=== PATIENT | female | born 1975 | race Caucasian/White ===

== ENCOUNTER 2018-05-03 09:56 | Emergency (ER) | payer OTHER ==
[2018-05-03 10:11] VITALS: BP 118/71
--- NOTE | 2018-05-03 12:07 | Emergency Department Report ---
- General Chief complaint: Arrhythmia/Palpitations Stated complaint: LOW BP Time Seen by Provider: 05/03/18 11:59 Source: patient, family Mode of arrival: Ambulatory Limitations: Language Barrier - History of Present Illness Initial comments: Mrs. iHtchcock is healthy 42-year-old female who was referred to the ER from [facility]. She was evaluated by Fela Hamilton. She was in the office for 2 week follow-up last resort. She was unable to get a CT done for frequent headaches. Blood pressure was 86/55. She also had bradycardia 55 beats a minute. She refers to the ER for abnormal vital signs. According to H&P provided labs were stable. She does not have any current headaches. She patient's mother she has had frequent headaches for a long time. She is currently symptom-free. She does not take medications for blood pressure. I have reviewed medications which include Fioricet and prednisone. - Related Data Home Medications Medication Instructions Recorded Confirmed Last Taken No Known Home Medications [No 04/04/14 04/04/14 Unknown Reported Home Medications] Allergies Allergy/AdvReac Type Severity Reaction Status Date / Time No Known Allergies Allergy Verified 05/03/18 10:11 ED Review of Systems ROS: Stated complaint: LOW BP Other details as noted in HPI Comment: All other systems reviewed and negative Constitutional: denies: fever, malaise Respiratory: denies: cough Cardiovascular: denies: chest pain, palpitations ED Past Medical Hx - Past Medical History Previous Medical History?: Yes Hx Hypertension: No Hx Diabetes: No (pre-diabetes) Hx Liver Disease: No Hx Renal Disease: No Hx Seizures: No Hx Asthma: No Hx COPD: No Additional medical history: ovarian cyst, DJD, - Surgical History Past Surgical History?: Yes Hx Cholecystectomy: Yes Additional Surgical History: umbilical hernia, spleen removed? - Social History Smoking Status: Never Smoker Substance Use Type: None - Medications Home Medications: Home Medications Medication Instructions Recorded Confirmed Last Taken Type No Known Home Medications [No 04/04/14 04/04/14 Unknown History Reported Home Medications] ED Physical Exam - General Limitations: Language Barrier General appearance: alert, in no apparent distress - Head Head exam: Present: atraumatic, normocephalic - Eye Eye exam: Present: normal appearance. Absent: PERRL, EOMI - ENT ENT exam: Present: mucous membranes moist - Neck Neck exam: Present: normal inspection. Absent: tenderness, meningismus - Respiratory Respiratory exam: Present: normal lung sounds bilaterally. Absent: respiratory distress, wheezes, rales, rhonchi - Cardiovascular Cardiovascular Exam: Present: normal rhythm, tachycardia, normal heart sounds. Absent: systolic murmur, diastolic murmur, rubs, gallop - GI/Abdominal GI/Abdominal exam: Present: soft, normal bowel sounds. Absent: distended, tenderness, rebound - Extremities Exam Extremities exam: Present: normal inspection - Back Exam Back exam: Present: normal inspection - Neurological Exam Neurological exam: Present: alert, oriented X3 - Psychiatric Psychiatric exam: Present: normal affect, normal mood - Skin Skin exam: Present: warm, dry, intact, normal color. Absent: rash ED Course Vital Signs 05/03/18 05/03/18 10:02 12:44 Temperature 98.4 F Pulse Rate 53 L 89 Respiratory 17 Rate Blood Pressure 118/71 O2 Sat by Pulse 100 97 Oximetry ED Medical Decision Making - Lab Data Result diagrams: 05/03/18 12:10 05/03/18 12:06 - EKG Data -: EKG Interpreted by Ct EKG shows normal: sinus rhythm, axis, intervals, QRS complexes, ST-T waves Rate: bradycardia - EKG Data 05/03/18 12:06 EKG obtained at 1146 Sinus bradycardia rate 50 beats a minute normal axis normal intervals no ST-T signs of ischemia no signs of pericarditis - Medical Decision Making Mrs. Hitchcock presents with asymptomatic bradycardia here in the ED. Previously reported hypotension. Blood pressure was normal here in the ED. She is currently symptom-free. CBC chemistry within normal limits. EKG normal with exception of sinus bradycardia. Patient was given reassurance. Discharged home in stable condition. Critical care attestation.: If time is entered above; I have spent that time in minutes in the direct care of this critically ill patient, excluding procedure time. ED Disposition Clinical Impression: Bradycardia Disposition: DC-01 TO HOME OR SELFCARE Is pt being admited?: No Does the pt Need Aspirin: No Condition: Stable Instructions: Bradycardia (ED) Referrals: PRIMARY CARE, [Primary Care Provider] - 3-5 Days Forms: Work/School Release Form(ED) Time of Disposition: 12:55
[2018-05-03 12:17] LABS: Basophils % (Auto) 0.6 % (0.0-1.8); Eosinophils # (Auto) 0.3 K/mm3 (0.0-0.4); Eosinophils % (Auto) 5.1 % (0.0-4.3); Hematocrit 35.4 % (30.3-42.9); Lymphocytes # (Auto) 2.7 K/mm3 (1.2-5.4); Lymphocytes % (Auto) 42.9 % (13.4-35.0); Mean Corpuscular HGB Conc 34 % (30-34); Mean Corpuscular Hemoglobin 30 pg (28-32); Mean Corpuscular Volume 87 fl (79-97); Monocytes # (Auto) 0.4 K/mm3 (0.0-0.8); Monocytes % (Auto) 6.7 % (0.0-7.3); Platelet Count 271 K/mm3 (140-440); Red Blood Count 4.06 M/mm3 (3.65-5.03); Red Cell Distribution Width 13.8 % (13.2-15.2)
[2018-05-03 12:33] LABS: Alanine Aminotransferase 41 units/L (7-56); Albumin 4.5 g/dL (3.9-5); BUN/Creatinine Ratio 20; Blood Urea Nitrogen 8 mg/dL (7-17); Calcium 9.2 mg/dL (8.4-10.2); Hemolysis Index 5
== END 2018-05-03 13:03 | disposition home or self-care (01) ==
LOC: ED 09:56
DX: R00.1 Bradycardia, unspecified (principal); Z90.49 Acquired absence of other specified parts of digestive tract
CPT/HCPCS: 36415; 80053; 85025; 93005; 93010; 99283

== ENCOUNTER 2020-06-21 07:48 | Emergency (ER) | payer SELFPAY ==
[2020-06-21] MEDS ORDERED: CYCLOBENZAPRINE 10 MG TAB PO ONE (10:11)
[2020-06-21] MEDS ORDERED: IBUPROFEN 600 MG TAB PO ONE (10:11)
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
[2020-06-21 12:15] VITALS: BP 132/78
== END 2020-06-21 12:14 | disposition home or self-care (01) ==
LOC: ED 07:48
DX: S16.1XXA Strain of muscle, fascia and tendon at neck level, initial encounter (principal); S39.012A Strain of muscle, fascia and tendon of lower back, initial encounter; Z90.49 Acquired absence of other specified parts of digestive tract; Z98.890 Other specified postprocedural states; Z79.899 Other long term (current) drug therapy; V49.49XA Driver injured in collision with other motor vehicles in traffic accident, initial encounter; Y93.89 Activity, other specified; Y92.488 Other paved roadways as the place of occurrence of the external cause; Y99.8 Other external cause status
CPT/HCPCS: 72040; 72100; 99283